=== PATIENT | male | born 1945 | race Hispanic/Latino ===

== ENCOUNTER 2021-10-22 13:30 | Emergency (ER) | payer MEDICARE ==
[2021-10-22 13:37] VITALS: BP 170/98
[2021-10-22] MEDS ORDERED: KETOROLAC 30 MG/1 ML INJ IM ONE (15:27)
[2021-10-22] MEDS ORDERED: MORPHINE 4 MG/1 ML INJ IM ONE (15:27)
--- NOTE | 2021-10-22 16:02 | Emergency Department Report ---
ED Back Pain/Injury HPI - General Chief Complaint: Extremity Injury, Lower Stated Complaint: RT HIP AND LEG PAIN Time Seen by Provider: 10/22/21 15:19 Source: patient, EMS Limitations: Physical Limitation - History of Present Illness Initial Comments: Patient is a 76-year-old male with history of chronic back pain presenting with complaint of pain in his back and right hip. States he takes oxycodone at home for pain however has been out of it. He denies any recent injuries. No fever or chills. - Related Data Allergies Allergy/AdvReac Type Severity Reaction Status Date / Time Penicillins Allergy Unknown Verified 10/22/21 13:38 ED Review of Systems ROS: Stated complaint: RT HIP AND LEG PAIN Other details as noted in HPI Constitutional: denies: chills, fever Respiratory: denies: cough, shortness of breath, wheezing Cardiovascular: denies: chest pain, palpitations Gastrointestinal: denies: abdominal pain, nausea, diarrhea Genitourinary: denies: urgency, dysuria Musculoskeletal: back pain. denies: joint swelling, arthralgia Skin: denies: rash, lesions Neurological: denies: headache, weakness, paresthesias Psychiatric: denies: anxiety, depression ED Past Medical Hx - Past Medical History Previous Medical History?: Yes Hx Hypertension: Yes Hx Diabetes: Yes ED Physical Exam - General Limitations: Physical Limitation - Head Head exam: Present: atraumatic, normocephalic - Respiratory Respiratory exam: Present: normal lung sounds bilaterally. Absent: respiratory distress - Cardiovascular Cardiovascular Exam: Present: regular rate, normal rhythm, normal heart sounds - GI/Abdominal GI/Abdominal exam: Present: soft. Absent: distended, tenderness - Rectal Rectal exam: Present: deferred - Back Exam Back exam: Present: tenderness (Tenderness in right lower back) - Neurological Exam Neurological exam: Present: alert, oriented X3 - Psychiatric Psychiatric exam: Present: normal affect, normal mood - Skin Skin exam: Present: warm, dry, intact, normal color ED Course Vital Signs 10/22/21 13:35 Temperature 98.2 F Pulse Rate 64 Respiratory 16 Rate Blood Pressure 170/98 [Left] O2 Sat by Pulse 98 Oximetry ED Medical Decision Making - Medical Decision Making Pain improved with IM morphine and Toradol. Patient stable for discharge home. Encouraged him to follow-up with his pain doctor BUFFY. Critical care attestation.: If time is entered above; I have spent that time in minutes in the direct care of this critically ill patient, excluding procedure time. ED Disposition Clinical Impression: Chronic back pain Disposition: 01 HOME / SELF CARE / HOMELESS Is pt being admited?: No Condition: Stable Instructions: Chronic Back Pain Additional Instructions: Please follow-up with your pain specialist as soon as possible. Time of Disposition: 17:18
== END 2021-10-22 17:36 | disposition home or self-care (01) ==
LOC: ED 13:30
DX: M54.9 Dorsalgia, unspecified (principal); I10 Essential (primary) hypertension; E11.9 Type 2 diabetes mellitus without complications
CPT/HCPCS: 96372; 99283; J1885; J2270